=== PATIENT | female | born 2005 | race Two or more races ===

== ENCOUNTER 2024-03-12 10:09 | Emergency (ER) | payer OTHER ==
[~2024-03-12] VITALS: Ht 162.6 cm; Wt 68.0 kg
[2024-03-12] MEDS ORDERED: DEXTROSE 5 %-0.45 % SOD CHLORD 1,000 ML IV SCH (10:45)
[2024-03-12] MEDS ORDERED: ONDANSETRON HCL 2 MG/ML VIAL IV ONE (10:45)
[2024-03-12] MEDS ORDERED: PANTOPRAZOLE SODIUM 40 MG/VIAL VIAL IV ONE (10:45)
[2024-03-12] MEDS ORDERED: RINGERS SOLUTION,LACTATED 1,000 ML IV ONE (10:45)
[2024-03-12] MEDS ORDERED: ONDANSETRON HCL 2 MG/ML VIAL ONE (10:52)
[2024-03-12 11:03] LABS: HEMATOCRIT 39.8 % (36.0-45.00); HEMOGLOBIN 13.7 g/dL (12.0-15.00); MEAN CELL VOLUME 94.3 fL (80.00-100.00); MEAN CORPUSCULAR HEMOGLOBIN 32.5 pg (27.00-32.0); MEAN CORPUSCULAR HGB CONC 34.4 g/dl (32.0-36.0); PLATELET COUNT 268 K/uL (150-450); RED BLOOD COUNT 4.22 M/uL (4.00-6.00); RED CELL DISTRIBUTION WIDTH 12.8 % (11.5-14.5)
[2024-03-12 11:09] LABS: URINE APPEARANCE Clear; URINE BILIRRUBIN Negative (NEGATIVE); URINE BLOOD Negative; URINE COLOR Yellow; URINE GLUCOSE Negative (NEGATIVE); URINE KETONE 15 (NEGATIVE); URINE LEUKOCYTE Trace; URINE NITRATE Negative; URINE PROTEIN Trace (NEGATIVE)
[2024-03-12 11:10] LABS: URINE RBC 16.7 uL (0.0-20.8); URINE WBC 25.4 uL (0.0-23.2)
[2024-03-12 11:29] LABS: ALBUMIN 4.3 gm/dL (3.4-5.0); BILIRUBIN TOTAL 0.52 mg/dL (0.3-1.2); CALCIUM 9.7 mg/dL (8.5-10.1); CREATININE SERUM 0.86 mg/dL (0.55-1.02); GFR 84.12; GLOBULINA 4.2 G/DL (2.4-3.5); POTASSIUM 3.76 mEq/L (3.5-5.1); TOTAL PROTEIN 8.5 gm/dL (6.4-8.2)
[2024-03-12 11:56] LABS: URINE CAST 0.45 uL (0.0-1.40)
== END 2024-03-12 13:45 | disposition home or self-care (01) ==
LOC: EMR PED 10:10 → ER 10:10 → EMR PED 10:55
PROVIDERS: Emergency Medicine Pediatric Emergency Medicine
DX: K29.70 Gastritis, unspecified, without bleeding (principal); R11.10 Vomiting, unspecified; E86.0 Dehydration; Z20.822 Contact with and (suspected) exposure to COVID-19

== ENCOUNTER 2025-03-22 20:31 | Emergency (ER) | payer OTHER ==
[~2025-03-22] VITALS: Ht 167.6 cm; Wt 64.9 kg
[2025-03-22] MEDS ORDERED: CLINDAMYCIN PHOSPHATE 150 MG/ML (900mg) IV STA (21:49)
[2025-03-22] MEDS ORDERED: OxyCODONE HCL 5 MG TABLET (ROXICODONE) PO STA (21:52)
== END 2025-03-23 01:03 | disposition home or self-care (01) ==
LOC: ER 20:31
DX: L02.31 Cutaneous abscess of buttock (principal)

== ENCOUNTER → 2025-03-31 13:47 | Outpatient (CLI) | payer OTHER | END | disposition home or self-care (01) | LOC: PRENATAL 13:47 | PROVIDERS: ATTEND Obstetrics & Gynecology Maternal & Fetal Medicine | DX: O44.00 Complete placenta previa NOS or without hemorrhage, unspecified trimester (principal); Z3A.21 21 weeks gestation of pregnancy ==

== ENCOUNTER 2025-04-16 05:10 | Emergency (ER) | payer OTHER ==
[~2025-04-16] VITALS: Ht 162.6 cm; Wt 66.2 kg
[2025-04-16] MEDS ORDERED: PRENATABS FA T1 EACH PO (05:20)
[2025-04-16] MEDS ORDERED: CLINDAMYCIN PHOSPHATE 150 MG/ML (600mg) IM STA (07:33)
[2025-04-16] MEDS ORDERED: CLINDAMYCIN PHOSPHATE 150 MG/ML (300mg) ONE (07:37)
== END 2025-04-16 07:51 | disposition home or self-care (01) ==
LOC: ER 05:11
DX: L02.32 Furuncle of buttock (principal)

== ENCOUNTER → 2025-06-29 13:30 | Outpatient (CLI) | payer OTHER ==
[~2025-06-29 13:30] MED LIST: PRENATABS FA T1 EACH PO
== END | disposition home or self-care (01) ==
LOC: PRENATAL 13:30
PROVIDERS: ATTEND Obstetrics & Gynecology Maternal & Fetal Medicine
DX: O26.843 Uterine size-date discrepancy, third trimester (principal); O36.8130 Decreased fetal movements, third trimester, not applicable or unspecified; Z3A.33 33 weeks gestation of pregnancy